=== PATIENT | male | born 1945 | race Caucasian/White ===

== ENCOUNTER 2017-06-07 12:38 | Emergency (ER) | payer OTHER ==
[~2017-06-07] VITALS: Ht 177.8 cm; Wt 127.1 kg
[~2017-06-07 12:38] MED LIST: ALDACTONE25 MG PO; ATIVAN0.5 MG PO; AUGMENTIN 875875 M1 PO; AUGMENTIN 875875 MG PO; BACTRIM DS TAB1 EACH PO; BAYER CHEWABLE81 MG PO; CARVEDILOL25 MG PO; CARVEDILOL3.125 MG PO; CARVEDILOL6.25 MG; CARVEDILOL6.25 MG PO; CELEXA10 M1 PO; CELEXA20 MG PO; CEPHALEXIN 500500 M3 PO; CLEOCIN HCL300 MG PO; COUMADIN 2 MG TA2 M1 PO; COUMADIN 2.5MG2.5 M1 PO; COUMADIN 5 MG TA5 M1 PO; DOCUSATE SODIU100 MG PO; DOXYCYCLINE 10100 M1 PO; DOXYCYCLINE 10100 MG PO; FARXIGA10 MG; FISH OIL 1,0001 EAC5 PO; FLEXERIL PO; FLOMAX0.4 MG PO; GABAPENTIN100 MG PO; GEMFIBROZIL 60600 MG PO; GLUCOMETER; GLUCOPHAGE1000 MG PO; GLUCOPHAGE500 MG PO; GLUCOTROL5 MG PO; HYDRALAZINE 5050 M1 PO; HYDROCODONE-AP1 EAC6 PO; INVANZ 1GM/NS 101 GM; ISORDIL10 MG PO; JANUVIA100 MG PO; KEFLEX500 MG PO; LANOXIN 0.250.25 M1 PO; LANTUS SC; LANTUS SQ; LASIX 20 MG TAB20 MG PO; LASIX 40 MG TAB40 M1 PO; LASIX 40 MG TAB40 M2 PO; LEVAQUIN 500 M500 M2 PO; LEVEMIR SC; LEVEMIR SUBQ; LEVEMIR100 UNIT/1 SUBQ; LISINOPRIL5 MG PO; LORTABELXR PO; METFORMIN HCL500 MG PO; METOLAZONE 2.52.5 MG PO; MICARDIS 80 MG80 MG PO; MICARDIS HCT 81 EACH PO; MIDODRINE HCL10 MG PO; NAPROSYN500 MG PO; NORCO 5-325 TA1 EACH PO; NORVASC 5 MG TAB5 MG PO; NOVOLIN R100 UNIT/3 SUBQ; NOVOLOG100 UNIT/1 SC; NOVOLOG100 UNIT/1 SQ; NOVOLOG100 UNIT/1 SUBQ; OMEPRAZOLE40 MG PO; PACERONE 200 M200 M1 PO; POTASSIUM CHLO10 ME1 PO; POTASSIUM20 PO; PREDNISONE 10 M10 MG PO; PRILOSEC 20 MG20 MG PO; PRILOSEC40 MG PO; PROSCAR 5MG TABL5 MG PO; PROVENTIL IH; ROBAXIN500 MG PO; ROCEPHIN 1 GM VL1 G1 IV; ROCEPHIN 11 GM/1001 IV; SENOKOT-S1 TA1 PO; SIMVASTATIN20 MG PO; SPIRONOLACTONE25 M1 PO; TAMSULOSIN HCL0.4 M1; TESSALON PERLE100 MG PO; VANCOMYCIN HCL125 MG IV; VANCOMYCIN1 GM/250 M IV; VANCOMYCIN1.25 GM/15 IVPB; VENTOLIN HFA 1818 GM INH; VICODIN 5-3001 EACH PO; ZPAK PO
[2017-06-07 13:24] LABS: URINE BILIRUBIN NEGATIVE (Negative); URINE BLOOD NEGATIVE (Negative); URINE CLARITY CLEAR; URINE COLOR YELLOW; URINE GLUCOSE-RANDOM NEGATIVE (Negative); URINE KETONES NEGATIVE (Negative); URINE LEUKOCYTES-REFLEX NEGATIVE (Negative); URINE NITRITE-REFLEX NEGATIVE (Negative); URINE PROTEIN NEGATIVE (Negative); URINE UROBILINOGEN 0.2 E.U./dl (0.2-1.0)
[2017-06-07 13:37] LABS: ABSOLUTE BASOPHILS 0.1 thou/uL (0.0-0.2); ABSOLUTE EOSINOPHILS 0.6 thou/uL (0.0-0.7); ABSOLUTE LYMPHOCYTES 1.3 thou/uL (0.8-5.3); ABSOLUTE MONOCYTES 1.1 thou/uL (0.0-1.2); ABSOLUTE NEUTROPHILS 8.9 thou/uL (1.6-8.1); BASOPHILS 1.2 %; EOSINOPHILS 5.3 %; HEMATOCRIT 36.3 % (42.0-52.0); HEMOGLOBIN 12.1 gm/dL (14.0-18.0); LYMPHOCYTES 11.1 %; MCHC 33.4 g/dL (28.0-37.0); MONOCYTES 9.2 %; MPV 6.9 fl. (7.2-11.1); NUCLEATED RBCS 0 /100WBC; PLATELET COUNT* 229 thou/uL (150-400); POLYS 73.2 %; RBC 4.32 mil/uL (4.50-6.00); RDW-CV 14.9 % (10.5-14.5); WBC 12.1 thou/uL (4.0-11.0)
[2017-06-07 13:53] LABS: ANION GAP 7 mmol/L (7-16); BUN 53 mg/dL (7-18); CALCIUM 8.8 mg/dL (8.5-10.1); CHLORIDE 93 mmol/L (98-107); CO2 36 mmol/L (21-32); GLUCOSE 243 mg/dL (70-99); POTASSIUM 3.1 mmol/L (3.5-5.1); SODIUM 136 mmol/L (136-145)
[2017-06-07 13:57] LABS: ALBUMIN 3.1 g/dL (3.4-5.0); ALKALINE PHOSPHATASE 83 U/L (46-116); NT-PRO BRAIN NAT PEPTIDE 147 pg/mL (<300); SGOT 21 U/L (15-37); SGPT 33 U/L (30-65); TOTAL BILIRUBIN 0.3 mg/dL (<0.1-1.0); TOTAL PROTEIN 7.7 g/dL (6.4-8.2); TROPONIN-I LEVEL <0.06 ng/mL (<0.06)
[2017-06-07 14:03] LABS: APTT 26.4 Seconds (25.0-31.3); INR 1.1; PROTIME 10.5 Seconds (9.20-11.50)
[2017-06-07 14:30] VITALS: BP 129/78
--- NOTE | 2017-06-07 16:45 | EKG ---
[place] [address] ELECTROCARDIOGRAM REPORT Name: HANSCLARIBELSALLIE EV Room: [facility]#: [id number] Admission: 06/07/17 Attend Phys: Discharge: 06/07/17 Date of : 45 Report #: [id number] THIS REPORT FOR: //name// [facility] ED Test Date: 2017-06-07 Test Time: 13:22:17 Pat Name: SALLIE JARRELL Department: Room: Gender: M [employer]iler: Florecita CAO : 1945 Requested By: Christiano Mcintosh Order Number: [id number] MD: Sukh Lopez Measurements Intervals [place] Rate: 86 P: 252 VT: 239 QRS: -36 QRSD: 148 T: 121 QT: 430 QTc: 515 Interpretive Statements Sinus or ectopic atrial rhythm Prolonged VT interval Left bundle branch block Compared to ECG 03/15/2017 11:36:33 Ectopic atrial rhythm now present First degree AV block now present Sinus rhythm no longer present Electronically Signed On 06-07-2017 16:44:58 BOTTLE PACKER by Sukh Lopez [email or web address] <ELECTRONICALLY SIGNED> By: Sukh Lopez MD, [facility] 06/07/17 1644 1322 1322 Sukh Lopez MD, [facility] /EPI
== END 2017-06-07 14:31 | disposition home or self-care (01) ==
LOC: M.ERS 12:38
PROVIDERS: Family Medicine
DX: Z71.1 Person with feared health complaint in whom no diagnosis is made (principal); I25.2 Old myocardial infarction; I50.9 Heart failure, unspecified; E11.9 Type 2 diabetes mellitus without complications; J43.9 Emphysema, unspecified; I48.91 Unspecified atrial fibrillation; Z86.73 Personal history of transient ischemic attack (TIA), and cerebral infarction without residual deficits; Z87.01 Personal history of pneumonia (recurrent); Z87.891 Personal history of nicotine dependence; Z88.8 Allergy status to other drugs, medicaments and biological substances

== ENCOUNTER 2017-07-05 10:31 | Inpatient (IN) | payer OTHER ==
[~2017-07-05] VITALS: Ht 177.8 cm; Wt 127.0 kg
[2017-07-05 10:41] VITALS: BP 128/66
[2017-07-05 11:18] LABS: INFLUENZA A ANTIGEN None Detected (None Detect); INFLUENZA B ANTIGEN None Detected (None Detect)
[2017-07-05 11:31] LABS: HEMATOCRIT 34.8 % (42.0-52.0); HEMOGLOBIN 11.8 gm/dL (14.0-18.0); MCH 28.5 pg (26.0-34.0); MCHC 33.9 g/dL (28.0-37.0); MPV 7.3 fl. (7.2-11.1); NUCLEATED RBCS 0 /100WBC; PLATELET COUNT* 210 thou/uL (150-400); RBC 4.15 mil/uL (4.50-6.00); RDW-CV 15.2 % (10.5-14.5); WBC 8.8 thou/uL (4.0-11.0)
[2017-07-05 11:43] LABS: ANION GAP 7 mmol/L (7-16); BUN 52 mg/dL (7-18); CALCIUM 8.1 mg/dL (8.5-10.1); CHLORIDE 95 mmol/L (98-107); CO2 33 mmol/L (21-32); CREATININE 2.1 mg/dL (0.6-1.3); GLUCOSE 335 mg/dL (70-99); SODIUM 135 mmol/L (136-145)
[2017-07-05 11:45] LABS: POTASSIUM 2.8 mmol/L (3.5-5.1)
[2017-07-05 11:49] LABS: ALBUMIN 2.9 g/dL (3.4-5.0); ALKALINE PHOSPHATASE 88 U/L (46-116); NT-PRO BRAIN NAT PEPTIDE 166 pg/mL (<300); SGOT 25 U/L (15-37); SGPT 33 U/L (30-65); TOTAL BILIRUBIN 0.4 mg/dL (<0.1-1.0); TOTAL PROTEIN 7.1 g/dL (6.4-8.2); TROPONIN-I LEVEL <0.06 ng/mL (<0.06)
[2017-07-05 12:05] LABS: ABSOLUTE EOSINOPHILS 0.5 thou/uL (0.0-0.7); ABSOLUTE LYMPHOCYTES 0.9 thou/uL (0.8-5.3); ABSOLUTE MONOCYTES 0.7 thou/uL (0.0-1.2); ABSOLUTE NEUTROPHILS 6.7 thou/uL (1.6-8.1); ANISOCYTOSIS 1+; PLATELET ESTIMATE ADEQUATE; POIKILOCYTOSIS 1+
--- NOTE | 2017-07-05 16:33 | EKG ---
[place] [address] ELECTROCARDIOGRAM REPORT Name: SALLIE JARRELL Room: [place] [address] ADM IN [facility].#: [id number] Admission: 07/05/17 Attend Phys: Yaz Hernández Discharge: Date of : 45 Report #: [id number] THIS REPORT FOR: //name// [facility] ED Test Date: 2017-07-05 Test Time: 10:44:40 Pat Name: SALLIE JARRELL Department: Room: [facility] Gender: M [employer] Driver: [place] : 1945 Requested By: Sisi Munoz Order Number: [id number] MD: Ramon Hedrick Measurements Intervals [place] Rate: 94 P: 261 [place]: 198 QRS: -47 QRSD: 151 T: 129 QT: 401 QTc: 502 Interpretive Statements Sinus or ectopic atrial rhythm Left bundle branch block Baseline wander in lead(s) II,III,aVF Compared to ECG 06/07/2017 13:22:17 First degree AV block no longer present Electronically Signed On 07-05-2017 16:33:39 TALENT SCOUT by Ramon Hedrick [email or web address] <ELECTRONICALLY SIGNED> By: Ramon Hedrick MD, FACC 07/05/17 1633 1044 1044 Ramon Hedrick MD, FAC /EPI
[2017-07-05 16:59] VITALS: BP 128/59
[2017-07-05 17:00] VITALS: BP 125/60
[2017-07-05 17:04] LABS: BE 5.2 mmol/L (-2 to +3); HCO3 29.8 mmol/L (22.0-26.0); PCO2 43.5 mmHg (35.0-45.0); PO2 81.1 mmHg (75.0-100.0); pH 7.453 (7.340-7.450)
[2017-07-06] VITALS: BP 110/55
[2017-07-06 04:00] VITALS: BP 111/63
[2017-07-06 05:05] LABS: ABSOLUTE LYMPHOCYTES 0.8 thou/uL (0.8-5.3); ABSOLUTE MONOCYTES 0.3 thou/uL (0.0-1.2); ABSOLUTE NEUTROPHILS 7.7 thou/uL (1.6-8.1); BASOPHILS 0.1 %; HEMATOCRIT 34.9 % (42.0-52.0); HEMOGLOBIN 11.7 gm/dL (14.0-18.0); MCH 28.5 pg (26.0-34.0); MCHC 33.7 g/dL (28.0-37.0); MCV 84.6 fL (80.0-100.0); MONOCYTES 3.1 %; MPV 7.7 fl. (7.2-11.1); NUCLEATED RBCS 0 /100WBC; PLATELET COUNT* 219 thou/uL (150-400); POLYS 87.8 %; RBC 4.12 mil/uL (4.50-6.00); RDW-CV 15.4 % (10.5-14.5); WBC 8.8 thou/uL (4.0-11.0)
[2017-07-06 05:08] LABS: CALCIUM 8.3 mg/dL (8.5-10.1); POTASSIUM 3.9 mmol/L (3.5-5.1)
[2017-07-06 09:15] VITALS: BP 105/47
[2017-07-06] MEDS ORDERED: LEVAQUIN 750 M750 MG PO (11:33)
[2017-07-06] MEDS ORDERED: FLAGYL500 MG PO (11:33)
[2017-07-06 11:53] VITALS: BP 139/75
[2017-07-06 15:57] VITALS: BP 126/66
--- NOTE | 2017-07-06 16:55 | 2DMMODE ---
[place] [address] 2 D/M-MODE ECHOCARDIOGRAM Name: WESLYSALLIE EV Room: [facility] IN [facility]#: [id number] Admission: 07/05/17 Attend Phys: Kash Preston Discharge: Date of : 45 Date of Service: 07/06/17 1654 Report #: [id number] THIS REPORT FOR: //name// APPROVED REPORT Study performed: 07/06/2017 09:37:40 EXAM: Comprehensive 2D, Doppler, and color-flow Echocardiogram Patient Location: In-Patient Room #: 310 Status: routine BSA: 2.41 HR: 71 bpm BP: 122/713 mmHg Rhythm: NSR Other Information Technically limited study due to poor endocardial definition, body habitus. Indications Congestive Heart Failure Echo Enhancing Agent Indication: Endocardial border delineation Agent(s) / Amount(s) Used: Optison 3 cc 2D Dimensions LVEF(%): 52.26 (>50%) IVSd: 14.23 (7-11mm) LVOT Diam: 23.61 (18-24mm) LVDd: 56.03 mm PWd: 11.28 (7-11mm) Ascending Ao: 32.47 (22-36mm) LVDs: 40.82 (25-40mm) Aortic Root: 36.74 mm Jauregui's LVEF: 52.26 % Volumes Left Atrial Volume (Systole) LA ESV Index: 35.80 mL/m2 Aortic Valve AoV Peak Davion.: 1.26 m/s AO Peak Gr.: 6.34 mmHg LVOT Max P.54 mmHg AO Mean Gr.: 3.72 mmHg LVOT Mean P.82 mmHg LVOT Max V: 0.94 m/[place] [address] 2 D/M-MODE ECHOCARDIOGRAM Name: SALLIE JARRELL Room: [address] M.R.#: [id number] Admission: 07/05/17 Attend Phys: Kash Preston Discharge: Date of : 45 Date of Service: 07/06/17 1654 Report #: [id number] AO V2 VTI: 29.33 cm LVOT Mean V: 0.62 m/s LIEN (VTI): 3.20 cm2 LVOT V1 VTI: 21.43 cm Mitral Valve E/A Ratio: 1.32 MV Decel. Time: 235.42 ms MV E Max Davion.: 0.99 m/s MV PHT: 68.27 ms MVA (PHT): 3.22 cm2 TDI E/Lateral E': 9.00 E/Medial E': 9.90 Medial E' Davion.: 0.10 m/s Lateral E' Davion.: 0.11 m/s Pulmonary Valve PV Peak Davion.: 1.13 m/s PV Peak Gr.: 5.09 mmHg Tricuspid Valve TR Peak Gr.: 27.62 mmHg RVSP: 32.00 mmHg Left Ventricle The left ventricle is normal size. moderate apical hypokinesis Mild to moderate concentric left ventricular hypertrophy. Left ventricular systolic function is mildly decreased. LVEF is 40-45%. The left ventricular diastolic function is normal. Right Ventricle The right ventricle is normal size. The right ventricular systolic function is normal. Pacemaker lead is present in the right ventricle. Atria Left atrium is mildly dilated. The right atrium size is normal. Aortic Valve The aortic valve is normal in structure. No aortic regurgitation is present. There is no aortic valvular stenosis. Mitral Valve The mitral valve is normal in structure. Trace mitral regurgitation. No evidence of mitral valve stenosis. Tricuspid Valve The tricuspid valve is normal in structure. Trace tricuspid regurgitation. The RVSP is 30-[place] [address] 2 D/M-MODE ECHOCARDIOGRAM Name: HANSCLARIBELSALLIE LEE Room: [address] [place] M.R.#: [id number] Admission: 07/05/17 Attend Phys: Kash Preston Discharge: Date of : 45 Date of Service: 07/06/17 1654 Report #: [id number] Pulmonic Valve The pulmonary valve is normal in structure. Trace pulmonic regurgitation. Great Vessels The aortic root is normal in size. IVC is normal in size and collapses with >50% inspiration Pericardium There is no pericardial effusion. <Conclusion> Mild to moderate concentric left ventricular hypertrophy. moderate apical hypokinesis LVEF is 40-45%. Left atrium is mildly dilated. <ELECTRONICALLY SIGNED> By: Pavel Herrera MD, [facility] 07/06/17 1654 53 [id number] Pavel Herrera MD, FACC /INF
[2017-07-06 23:43] VITALS: BP 112/54
[2017-07-07 02:06] LABS: GLYCOHEMOGLOBIN (HGB A1C) 9.3 % (4.8-5.6)
[2017-07-07 04:07] VITALS: BP 107/61
[2017-07-07 07:57] VITALS: BP 131/72
[2017-07-07 08:09] LABS: MPV 7.6 fl. (7.2-11.1); NUCLEATED RBCS 0 /100WBC
[2017-07-07 08:12] LABS: ABSOLUTE LYMPHOCYTES 0.8 thou/uL (0.8-5.3); ABSOLUTE MONOCYTES 0.8 thou/uL (0.0-1.2); ABSOLUTE NEUTROPHILS 16.7 thou/uL (1.6-8.1); BASOPHILS 0.1 %; HEMATOCRIT 35.3 % (42.0-52.0); HEMOGLOBIN 11.8 gm/dL (14.0-18.0); LYMPHOCYTES 4.5 %; MCH 27.9 pg (26.0-34.0); MCHC 33.3 g/dL (28.0-37.0); MCV 83.8 fL (80.0-100.0); MONOCYTES 4.3 %; PLATELET COUNT* 258 thou/uL (150-400); POLYS 91.1 %; RBC 4.22 mil/uL (4.50-6.00); RDW-CV 15.8 % (10.5-14.5); WBC 18.3 thou/uL (4.0-11.0)
[2017-07-07 08:16] LABS: CALCIUM 8.2 mg/dL (8.5-10.1); CREATININE 1.7 mg/dL (0.6-1.3); POTASSIUM 3.3 mmol/L (3.5-5.1)
[2017-07-07] MEDS ORDERED: PREDNISONE 10 M10 MG PO (15:27)
[2017-07-07] MEDS ORDERED: VENTOLIN HFA 1818 GM INH (15:28)
[2017-07-07] MEDS ORDERED: ALBUTEROL2.5 MG/31 INH (15:29)
[2017-07-07] MEDS ORDERED: NEBULIZER MISCELL (15:30)
[2017-07-07 15:33] VITALS: BP 131/72
[2017-07-07 15:37] VITALS: BP 131/72
[2017-07-07 15:43] VITALS: BP 131/72
[2017-07-07 17:10] VITALS: BP 131/72
== END 2017-07-07 17:00 | disposition home health service (06) | DRG 177 ==
LOC: M.ERS 10:31 → M.TBA-ER 13:06 → M.ERS 13:06 → M.TBA-ER 14:07 → M.3W 14:07
PROVIDERS: Physician Assistant; ADMIT Internal Medicine
DX: J15.6 Pneumonia due to other Gram-negative bacteria (principal); J96.01 Acute respiratory failure with hypoxia; N17.0 Acute kidney failure with tubular necrosis; I50.42 Chronic combined systolic (congestive) and diastolic (congestive) heart failure; I13.0 Hypertensive heart and chronic kidney disease with heart failure and stage 1 through stage 4 chronic kidney disease, or unspecified chronic kidney disease; Z68.41 Body mass index [BMI] 40.0-44.9, adult; J44.1 Chronic obstructive pulmonary disease with (acute) exacerbation; R65.10 Systemic inflammatory response syndrome (SIRS) of non-infectious origin without acute organ dysfunction; N18.3 Chronic kidney disease, stage 3 (moderate); E83.51 Hypocalcemia; E87.6 Hypokalemia; E11.22 Type 2 diabetes mellitus with diabetic chronic kidney disease; I25.10 Atherosclerotic heart disease of native coronary artery without angina pectoris; I48.0 Paroxysmal atrial fibrillation; E66.9 Obesity, unspecified; F41.9 Anxiety disorder, unspecified; Z87.891 Personal history of nicotine dependence; Z88.8 Allergy status to other drugs, medicaments and biological substances

== ENCOUNTER → 2017-11-08 | Outpatient (CLI) | payer OTHER ==
[~2017-11-08] MED LIST changes: +ALBUTEROL2.5 MG/31 INH; +FLAGYL500 MG PO; +LEVAQUIN 750 M750 MG PO; +NEBULIZER MISCELL
== END ==
LOC: M.LAB 10:45
DX: Z01.812 Encounter for preprocedural laboratory examination (principal)